=== PATIENT | female | born 1985 | race Two or more races ===

== ENCOUNTER 2021-04-06 00:26 | Inpatient (IN) | payer OTHER ==
[~2021-04-06] VITALS: Ht 160 cm; Wt 63.0 kg
[2021-04-06] VITALS (31 sets, daily range): BP systolic 96–138; BP diastolic 46–90
--- NOTE | 2021-04-06 00:28 | NUR ---
PT AAOX4. BIBRA C/O LOWER ABD PAIN AND SPOTTING.WAS DIAGNOSED W/ ECTOPIC REC'D 2 DOSED OF methotrexate SHOT. ON 03/20 & 03/26. PLACED IN BED 16 ON FOOD SERVICE COUNTER CLERK AND PULSE OX.ER MD AT BEDSIDE FOR EVAL. NO ACUTE DISTRESS NOTED. LINE ESTABLISHED RAC 18G, BLOOD WORK COLLECTED, SENT TO LAB.
[2021-04-06] MEDS ORDERED: IV NS 0.9% 1,000 ML BAG IV ONE (00:30)
--- NOTE | 2021-04-06 00:44 | NUR ---
US AT BEDSIDE
[2021-04-06 00:51] LABS: HEMOGLOBIN 12.1 g/dL (11.5-14.8); MEAN CORPUSCULAR HGB CONC 34 g/dl (31.0-36.0); RED BLOOD CELL COUNT(AUTO) 3.99 MIL/uL (4.0-5.2)
[2021-04-06 00:54] LABS: BASOPHILS % (AUTO) 0.2 % (0.0-2.0); EOSINOPHILS % (AUTO) 0.1 % (0.0-6.0); HEMATOCRIT 36 % (33-45); LYMPHOCYTES # (AUTO) 1.3 K/uL (0.8-4.8); LYMPHOCYTES % (AUTO) 7.6 % (20.0-44.0); MEAN CORPUSCULAR VOLUME 90 fL (82-100); MONOCYTES # (AUTO) 0.5 K/uL (0.1-1.30); MONOCYTES % (AUTO) 2.9 % (2.0-12.0); NEUTROPHILS # (AUTO) 15.5 K/uL (1.8-8.9); NEUTROPHILS % (AUTO) 89.2 % (43.0-81.0); PLATELET COUNT (AUTO) 254 K/uL (150-450); WHITE BLOOD COUNT (AUTO) 17.4 K/uL (4.3-11.0)
[2021-04-06 01:08] LABS: CREATININE 0.9 mg/dL (0.6-1.3); POTASSIUM 3.3 mmol/L (3.5-5.1)
--- NOTE | 2021-04-06 01:56 | NUR ---
CHANGID SWABBED, SENT TO LAB.
--- NOTE | 2021-04-06 02:43 | NUR ---
PAGED DR KWAN. AWAITING FOR HER CALL BACK
[2021-04-06] MEDS ORDERED: FENTANYL PF 100MCG/2ML AMPUL ONE (02:53)
[2021-04-06] MEDS ORDERED: FENTANYL PF 100MCG/2ML AMPUL IV ONE (03:00)
--- NOTE | 2021-04-06 03:04 | NUR ---
DR VERNON ON THE PHONE WITH DR KWAN
--- NOTE | 2021-04-06 03:27 | NUR ---
NOT A CANDIDATE FOR [facility]
[2021-04-06 03:28] LABS: BASOPHILS % (AUTO) 0.1 % (0.0-2.0); HEMATOCRIT 28 % (33-45); HEMOGLOBIN 9.7 g/dL (11.5-14.8); LYMPHOCYTES # (AUTO) 0.8 K/uL (0.8-4.8); LYMPHOCYTES % (AUTO) 5.7 % (20.0-44.0); MEAN CORPUSCULAR HGB CONC 35 g/dl (31.0-36.0); MEAN CORPUSCULAR VOLUME 89 fL (82-100); MONOCYTES # (AUTO) 0.4 K/uL (0.1-1.30); MONOCYTES % (AUTO) 2.7 % (2.0-12.0); NEUTROPHILS # (AUTO) 12.3 K/uL (1.8-8.9); NEUTROPHILS % (AUTO) 91.5 % (43.0-81.0); PLATELET COUNT (AUTO) 187 K/uL (150-450); RED BLOOD CELL COUNT(AUTO) 3.12 MIL/uL (4.0-5.2); WHITE BLOOD COUNT (AUTO) 13.5 K/uL (4.3-11.0)
--- NOTE | 2021-04-06 03:36 | NUR ---
PAGED ANESTHESIOLOGIST RESIDENCE DIRECTOR, NO ANSWER. MESSAGE LEFT ABOUT THE URGENT MATTER.
--- NOTE | 2021-04-06 03:46 | NUR ---
JOSE RENTERIA TALKING TO DR. BRANDT REGARDING PT.
--- NOTE | 2021-04-06 04:02 | NUR ---
JOSE RENTERIA TALKING TO DR. AGEE FROM [facility] REGARDING PT.
--- NOTE | 2021-04-06 04:03 | NUR ---
PT SIGNED BLOOD TRANSFUSION CONSENT/ AWARE OF PLAN OF CARE.
--- NOTE | 2021-04-06 04:09 | NUR ---
ER TALKING TO ABRAN NGUYEN DNP REGARDING PT ADMISSION.
--- NOTE | 2021-04-06 04:12 | NUR ---
JOSE RENTERIA TALKING TO [facility] REGARDING PT.
--- NOTE | 2021-04-06 04:24 | NUR ---
BLOOD TRANSFUSION INITIATED.
--- NOTE | 2021-04-06 04:54 | NUR ---
PT WAS PICKED UP BY [facility] AND TECH AND WAS TAKEN TO OR
--- NOTE | 2021-04-06 04:55 | NUR ---
REPORT CALLED TO MANAGER PRODUCTIONJACKY GOMEZ.
[2021-04-06] MEDS ORDERED: ANESTHESIA TRAY IN PYXIS 1 EA TRAY MC ONE (05:02)
[2021-04-06] MEDS ORDERED: HYDROMORPHONE INJ 2 MG/ML DISP.SYRIN ONE (05:05)
[2021-04-06] MEDS ORDERED: FENTANYL PF 250MCG/5ML AMPUL ONE (05:05)
[2021-04-06] MEDS ORDERED: MIDAZOLAM HCL 2 MG/2ML VIAL ONE (05:05)
[2021-04-06] MEDS ORDERED: FAMOTIDINE/PF INJ 20 MG/2 ML VIAL IV ONE (05:06)
[2021-04-06] MEDS ORDERED: ROCURONIUM BROMIDE 50 MG/5 ML ONE (05:06)
[2021-04-06] MEDS ORDERED: BUPIVACAINE MPF 0.5% W/EPI INJ 30 ML VIAL ONE (05:53)
--- NOTE | 2021-04-06 07:30 | NUR ---
ICU/RN/POST OP PT POST OP RECOVERY ,POST LAPAROSCOPIC PARTIAL DISTAL RIGHT SALPINGECTOMY-RUPTURED ECTOPIC ..PT IS AWAKE ALERT,ORIENTED.PLACED ON 2L N/C .SAT O2-100%.V/S STABLE,AFEBRILE.NO PAIN REPORTED AT THIS TIME.HR-100-120 BPM.NO VAGINAL BLEEDING NOTED .F/C IN PLACE WITH YELLOW URINE.IV FLUIDS NS 100ML/HR INFUSING ORDERED. SKIN INTACT,ABDOMINAL POST OP WOUND DRY AND CLEAN.
--- NOTE | 2021-04-06 08:00 | NUR ---
ICU/RN 1 UNITPRBC GIVEN IN OR.SECOND UNIT PRBC STARTED ORDERED. CONTINUE MONITORING.
[2021-04-06] MEDS ORDERED: MORPHINE SULFATE INJ 2 MG/ML DISP.SYRIN IV PRN (09:00)
[2021-04-06] MEDS ORDERED: ZOLPIDEM TARTRATE 5 MG TABLET PO PRN (09:00)
[2021-04-06] MEDS ORDERED: MORPHINE SULFATE INJ 4 MG/ML DISP.SYRIN IV PRN (09:00)
--- NOTE | 2021-04-06 09:15 | NUR ---
ICU/RN/POST OP PT C/O OF NAUSEA.ZOFRAN IV GIVEN ORDERED.
[2021-04-06] MEDS: ONDANSETRON HCL/PF 4 MG/2 ML VIAL IV PRN ×2 (09:36→18:02)
--- NOTE | 2021-04-06 10:36 | NUR ---
ICU/RN POST OP .1 UNIT PRBC GIVEN ORDERED.T-99.4. NO S/S OF REACTION NOTED.V/S STABLE.PT IS TRANSFERRING TO TELE UNIT ROOM 321-1.REPORT GIVEN .
--- NOTE | 2021-04-06 10:37 | NUR ---
BOARDING MOTHERMANAGER HEAVY DUTY NOTE RECEIVED PATIENT FROM ICU VIA GURNEY WITH V/S: BP- 99/90MMHG, KS- 105BPM, T- 99.4F AND RR- 20CPM AND WEIGHT OF 139LBS. AWAKE AND RESPONSIVE, A/O X4. WITH IV ACCESS AT LEFT AC #20 AND RIGHT UPPER ARM #18 - INTACT AND PATENT. WITH FOSTER CATHETER. WITH COMPLAINT OF PAIN OF 8/10. PAIN MEDS GIVEN. SKIN INTACT. FAMILY AT BEDSIDE. SAFETY MEASURES IN PLACE. CALL LIGHT WITHIN REACH. BED ON LOWEST AND LOCKED POSITION, SIDE RAILS UP X2. WILL CONTINUE TO MONITOR.
[2021-04-06] MEDS ORDERED: ONDANSETRON HCL/PF 4 MG/2 ML VIAL IV ONE (12:00)
[2021-04-06] MEDS: HYDROCODONE/APAP 5/325MG TABLET PO PRN (12:29)
[2021-04-06] MEDS: IV NS 0.9% 1,000 ML IV PRN (12:30)
[2021-04-06] MEDS: DOXYCYCLINE 100 MG in IV D5W 100 ML IV SCH (13:26)
[2021-04-06] MEDS: CEFOXITIN 2 G in IV NS 0.9% 100 ML IV SCH ×2 (14:33→19:11)
[2021-04-06 14:59] LABS: HEMATOCRIT 30 % (33-45); HEMOGLOBIN 10.1 g/dL (11.5-14.8); LYMPHOCYTES # (AUTO) 0.3 K/uL (0.8-4.8); LYMPHOCYTES % (AUTO) 1.4 % (20.0-44.0); MEAN CORPUSCULAR HGB CONC 34 g/dl (31.0-36.0); MEAN CORPUSCULAR VOLUME 90 fL (82-100); MONOCYTES # (AUTO) 0.7 K/uL (0.1-1.30); MONOCYTES % (AUTO) 3.5 % (2.0-12.0); NEUTROPHILS % (AUTO) 95.1 % (43.0-81.0); PLATELET COUNT (AUTO) 127 K/uL (150-450); RED BLOOD CELL COUNT(AUTO) 3.32 MIL/uL (4.0-5.2)
[2021-04-06] MEDS ORDERED: SIMETHICONE 80 MG TAB.CHEW PO PRN (15:00)
--- NOTE | 2021-04-06 18:36 | NUR ---
MS RN CLOSING NOTES PATIENT SITTING ON BED, AWAKE, A/O X4. WITH NO COMPLAINTS OF SOB, NOT IN DISTRESS. SAFETY MEASURES IN PLACED. CALL LIGHT WITHIN REACH. BED ON LOWEST LOCKED POSITION, SIDE RAILS UP X 2. NEEDS ATTENDED. WILL ENDORSE FOR ONEIL TO [employer] SOFTWARE ARCHITECT.
--- NOTE | 2021-04-06 19:41 | NUR ---
MS RN OPENING NOTES Patient is A&Ox4, resting in bed. Stating that the pain is tolerable and managed by PRN [place] and the simethicone decreasing gas helps a lot too. States she has not been feeling fever or chills, from time to time just slight tingling in the face which might be due to nerves. States she still has nausea when trying to eat solid foods so she is sticking to broths and liquids at this time. Family member at bedside. IVF running at 100cc/hr. Call light within reach. Is able to make needs known. Encouraged to ambulate as tolerated.
[2021-04-07] MEDS: CEFOXITIN 2 G in IV NS 0.9% 100 ML IV SCH ×4 (01:38→18:40)
[2021-04-07] MEDS: IV NS 0.9% 1,000 ML IV PRN ×2 (01:40→23:36)
[2021-04-07] MEDS: DOXYCYCLINE 100 MG in IV D5W 100 ML IV SCH ×2 (02:47→14:50)
[2021-04-07] MEDS: ACETAMINOPHEN 325 MG TABLET PO PRN ×2 (05:19→10:21)
[2021-04-07 06:13] LABS: BASOPHILS % (AUTO) 0.2 % (0.0-2.0); EOSINOPHILS % (AUTO) 0.2 % (0.0-6.0); HEMATOCRIT 23 % (33-45); HEMOGLOBIN 8.1 g/dL (11.5-14.8); LYMPHOCYTES # (AUTO) 1.9 K/uL (0.8-4.8); LYMPHOCYTES % (AUTO) 11.1 % (20.0-44.0); MEAN CORPUSCULAR HGB CONC 35 g/dl (31.0-36.0); MEAN CORPUSCULAR VOLUME 89 fL (82-100); MONOCYTES # (AUTO) 1.1 K/uL (0.1-1.30); MONOCYTES % (AUTO) 6.3 % (2.0-12.0); NEUTROPHILS # (AUTO) 13.8 K/uL (1.8-8.9); NEUTROPHILS % (AUTO) 82.2 % (43.0-81.0); PLATELET COUNT (AUTO) 113 K/uL (150-450); RED BLOOD CELL COUNT(AUTO) 2.62 MIL/uL (4.0-5.2); WHITE BLOOD COUNT (AUTO) 16.7 K/uL (4.3-11.0)
[2021-04-07 06:47] LABS: CALCIUM, SERUM 7.7 mg/dL (8.5-10.1); CREATININE 0.8 mg/dL (0.6-1.3); MAGNESIUM 1.7 mg/dL (1.8-2.4); PHOSPHORUS 2.4 mg/dL (2.5-4.9); POTASSIUM 4.1 mmol/L (3.5-5.1)
--- NOTE | 2021-04-07 07:00 | NUR ---
Has been A&Ox4, slept well throughout night. Denies pain besides slight headache relieved by PRN tylenol. Patient had 1 episode of vomiting after drinking a smoothie but was able to tolerate jello, crackers, and water. No other overnight events. Tolerating IV ABX well.
--- NOTE | 2021-04-07 07:28 | NUR ---
MS RN OPENING NOTES RECEIVED PATIENT RESTING IN BED. A/O X 4. ABLE TO MAKE NEEDS KNOWN, DENIES PAIN OR ANY DISCOMFORTS AT THIS TIME. ON ROOM AIR, BREATHING EVEN AND UNLABORED. IVF OF NS @ 100ML/HR INFUSING WELL TO LAC G#20 IV ACCESS, NO S/S OF INFILTRATION AT SITE NOTED. SAFETY MEASURES IN PLACE: BED LOCKED AND IN LOWEST POSITION, CALL LIGHT WITHIN REACH, SIDE RAILS UP X2. WILL MONITOR PT ACCORDINGLY.
[2021-04-07] MEDS: Magnesium 1GM/D5W 100ML PREMIX 100 ML IV SCH ×2 (10:22→11:25)
--- NOTE | 2021-04-07 10:27 | NUR ---
RN NOTES PT C/O OF HEADACHE. PRN TYLENOL 650MG PO GIVEN AT 1021. WILL CONTINUE TO MONITOR PT.
--- NOTE | 2021-04-07 11:47 | NUR ---
NOT ABLE TO PROCEED WITH THE US PELVIC EXAM DUE TO PT LOW BLOOD PRESSURE. JACKY SOTO INFORMED UNIT ASSISTANT, PT WILL BE GIVEN BLOOD TRANSFUSION FIRST.
[2021-04-07 12:23] VITALS: BP 126/62
--- NOTE | 2021-04-07 12:25 | NUR ---
RN NOTES BLOOD TRANSFUSION OF PRBC X 1 (306ML) STARTED AT 1225 VIA LAC g#18 AND WAS VERIFIED BY ANOTHER RN LILI. WILL MONITOR FOR ANY ALLERGIC/ADVERSE EFFECTS.
[2021-04-07] MEDS: DOCUSATE SODIUM 100 MG CAPSULE PO SCH (12:29)
[2021-04-07 12:39] VITALS: BP 111/45
[2021-04-07] MEDS ORDERED: K PHOS NEUTRAL 250 MG TABLET PO ONE (13:00)
[2021-04-07 13:09] VITALS: BP 117/52
[2021-04-07 13:29] VITALS: BP 117/48
[2021-04-07] MEDS: HYDROCODONE/APAP 5/325MG TABLET PO PRN (15:05)
--- NOTE | 2021-04-07 15:06 | NUR ---
RN NOTES PT C/O ACHING PAIN ON POSTERIOR NECK NECK AND HEAD, 5/10 SCALE. PRN NORCO 5/325 X2 TABS GIVEN AT 1504. WILL CONTONUE TO MONITOR AND REASSESS PT.
[2021-04-07 15:53] VITALS: BP 122/73
--- NOTE | 2021-04-07 15:55 | NUR ---
RN NOTES PT'S BLOOD TRANSFUSION OF PRBC X1 FINISHED AND TOLERATED WELL WITH NO ALLERGIC/ADVERSE REACTIONS NOTED.
--- NOTE | 2021-04-07 18:52 | NUR ---
MS RN CLOSING NOTES PATIENT RESTING IN BED CED MOM AT BEDSIDE. A/O X 4. ABLE TO MAKE NEEDS KNOWN. ON ROOM AIR, BREATHING EVEN AND UNLABORED. IVF OF NS @ 100ML/HR INFUSING WELL TO LAC G#20 IV ACCESS, NO S/S OF INFILTRATION AT SITE NOTED. ALL NEEDS AND CARE ATTENDED WELL. SAFETY MEASURES IN PLACE: BED LOCKED AND IN LOWEST POSITION, CALL LIGHT WITHIN REACH, SIDE RAILS UP X2. WILL ENDORSE ONEIL TO BILLING TYPIST NURSE
[2021-04-07 20:00] VITALS: BP 113/68
--- NOTE | 2021-04-07 20:01 | NUR ---
RN OPENING RECEIVED PATIENT IN BED WITH EYES CLOSED, EASY TO AROUSE. A/OX4. MOM IN BEDSIDE WITH PATIENT. NO S/S OF APPARENT DISTRESS IN ROOM AIR. NO C/O PAIN AT THIS TIME. IV NS RUNNING AT THIS TIME. SAFETY IN PLACE. WILL CONTINUE TO MONITOR.
[2021-04-08] MEDS: CEFOXITIN 2 G in IV NS 0.9% 100 ML IV SCH ×4 (00:43→18:07)
[2021-04-08] MEDS: DOXYCYCLINE 100 MG in IV D5W 100 ML IV SCH ×2 (02:15→14:28)
[2021-04-08 06:14] LABS: BASOPHILS % (AUTO) 0.3 % (0.0-2.0); EOSINOPHILS % (AUTO) 0.7 % (0.0-6.0); HEMATOCRIT 25 % (33-45); HEMOGLOBIN 8.7 g/dL (11.5-14.8); LYMPHOCYTES # (AUTO) 1.4 K/uL (0.8-4.8); LYMPHOCYTES % (AUTO) 13.4 % (20.0-44.0); MEAN CORPUSCULAR HGB CONC 35 g/dl (31.0-36.0); MEAN CORPUSCULAR VOLUME 87 fL (82-100); MONOCYTES # (AUTO) 0.4 K/uL (0.1-1.30); MONOCYTES % (AUTO) 3.6 % (2.0-12.0); NEUTROPHILS # (AUTO) 8.5 K/uL (1.8-8.9); PLATELET COUNT (AUTO) 71 K/uL (150-450); RED BLOOD CELL COUNT(AUTO) 2.83 MIL/uL (4.0-5.2); WHITE BLOOD COUNT (AUTO) 10.3 K/uL (4.3-11.0)
--- NOTE | 2021-04-08 06:54 | NUR ---
MS RN CLOSING NOTE PATIENT IN BED WITH EYES CLOSED, EASY TO AROUSE. A/OX4. NO S/S OF APPARENT DISTRESS. NO C/O PAIN AT THIS TIME. IV NS RUNNING AT THIS TIME @100 MLS/HR. ALL NEEDS ATTENDED. ALL SCHED MEDICATION ADMINISTERED. SAFETY KEPT IN PLACE THE WHOLE SHIFT. WILL ENDORSE CARE TO MORNING SHIFT RN.
[2021-04-08 07:03] LABS: CALCIUM, SERUM 7.1 mg/dL (8.5-10.1); CREATININE 0.6 mg/dL (0.6-1.3); PHOSPHORUS 2.4 mg/dL (2.5-4.9); POTASSIUM 3.6 mmol/L (3.5-5.1)
--- NOTE | 2021-04-08 07:04 | NUR ---
MS RN NOTES LAB CALLED TO ME ABOUT CRITICAL PROCALCITONIN LEVEL OF 62.61. ASKED CHARGE NURSE WHO I COULD REPORT IT TO , CHARGE SAID TO ENDORSE TO MORNING SHIFT RN -- ENDORSED TO CHARLES. WILL PUT IN CRITICAL LAB VALUE ASSESSMENT IN INTERVENTION.
--- NOTE | 2021-04-08 07:31 | NUR ---
MS RN OPENING NOTES RECEIVED PATIENT IN BED AWAKE, A/O X 4. ABLE TO MAKE NEEDS KNOWN, DENIES PAIN OR ANY DISCOMFORTS AT THIS TIME. ON ROOM AIR, BREATHING EVEN AND UNLABORED. IVF OF NS @ 100ML/HR INFUSING WELL TO LAC G#20 IV ACCESS, NO S/S OF INFILTRATION AT SITE NOTED. SAFETY MEASURES IN PLACE: BED LOCKED AND IN LOWEST POSITION, CALL LIGHT WITHIN REACH, SIDE RAILS UP X2. WILL MONITOR PT ACCORDINGLY.
[2021-04-08 07:40] LABS: BAND % (MANUAL) 1 % (0.0-5.0); LYMPHOCYTES % (MANUAL) 11 % (16-48); MONOCYTES % (MANUAL) 4 % (0-11.0); NEUTROPHILS % (MANUAL) 84 (42-76)
[2021-04-08 08:00] VITALS: BP 122/78
[2021-04-08] MEDS: DOCUSATE SODIUM 100 MG CAPSULE PO SCH (08:55)
[2021-04-08] MEDS: ACETAMINOPHEN 325 MG TABLET PO PRN ×2 (08:55→18:12)
--- NOTE | 2021-04-08 08:56 | NUR ---
RN NOTES PT C/O HEADACHE, PRN TYLENOL 650 MG PO GIVEN AT 0855. WILL CONTINUE TO MONITOR PT
[2021-04-08] MEDS: IV NS 0.9% 1,000 ML IV PRN (10:26)
[2021-04-08] MEDS ORDERED: IV NS 0.9% 500 ML IV ONE (11:00)
--- NOTE | 2021-04-08 11:00 | NUR ---
RN NOTES PRESIDENT & CEO [employer] [place] ON UNIT AND MADE AWARE OF PTS' HIGH PROCALCITONIN 62.61 WITH ORDER TO INFUSE BOLUS OF NS 500ML AND CARRIED OUT.
[2021-04-08] MEDS ORDERED: METR500T PO (12:16)
[2021-04-08] MEDS ORDERED: DOXY-326 PO (12:16)
[2021-04-08] MEDS ORDERED: K PHOS NEUTRAL 250 MG TABLET PO ONE (15:30)
[2021-04-08 16:00] VITALS: BP 135/91
--- NOTE | 2021-04-08 19:51 | NUR ---
RN DISCHARGED NOTES PT DISCHARGED HOME IN STABLE CONDITION. A/O X4. ABLE TO VERBALIZED NEEDS. V/S TAKEN, STABLE AND RECORDED. SKIN IS INTACT WITH NO SKIN IMPAIRMENTS NOTED. ALL BELONGINGS ACCOUNTED FOR. IV ACCESS ON BOTH L AND R AC REMOVED WITH NO ACTIVE BLEEDING NOTED, DRY DRESSING APPLIED TO SITES. NAME ARMBAND REMOVED. HEALTH TEACHINGS GIVEN TO PT AND MOTHER, BOTH VERBALIZED UNDERSTANDING. PT LEFT UNIT AT 1900 VIA WHEELCHAIR ACCOMPANIED BY VI MACARIO AND PT'S MOM. CHARGE NURSE AWARE OF DISCHARGE.
== END 2021-04-08 19:30 | disposition home health service (06) | DRG 817 ==
LOC: ER 00:30 → MED 04:04 → ICU 04:25 → MED 11:13
PROVIDERS: ADMIT Nurse Practitioner Acute Care; ATTEND Nurse Practitioner Acute Care
PROC: 10T24ZZ Resection of Products of Conception, Ectopic, Percutaneous Endoscopic Approach (ICD-10-PCS; principal; 2021-04-06)
PROC: 0UB54ZZ Excision of Right Fallopian Tube, Percutaneous Endoscopic Approach (ICD-10-PCS; 2021-04-06)
PROC: 30233N1 Transfusion of Nonautologous Red Blood Cells into Peripheral Vein, Percutaneous Approach (ICD-10-PCS; 2021-04-06)
DX: O00.101 Right tubal pregnancy without intrauterine pregnancy (principal); K66.1 Hemoperitoneum; O08.82 Sepsis following ectopic and molar pregnancy; O08.1 Delayed or excessive hemorrhage following ectopic and molar pregnancy; D62 Acute posthemorrhagic anemia; O08.0 Genital tract and pelvic infection following ectopic and molar pregnancy; E87.6 Hypokalemia; Z88.2 Allergy status to sulfonamides; Z20.822 Contact with and (suspected) exposure to COVID-19
CPT/HCPCS: 36415; 76856-TC; 80048-TC; 83605-TC; 83735-TC; 84100-TC; 84702-TC; 85025-TC; 85610-TC; 85730-TC; 86803; 87081-TC; 87806; 88305-TC; C9803; G0378; J0690; J0694; J1170; J2250; J2405; J2704; J2765; J3010; J3475; J3490; J7030; J7040; J7050; J7060; P9016